=== PATIENT | male | born 1935 | race Caucasian/White ===

== ENCOUNTER 2018-12-20 16:55 | Inpatient (IN) ==
[2018-12-20 22:40] LABS: URINE SOURCE CATH
[2018-12-20 22:45] LABS: BILIRUBIN URINE NEGATIVE (NEGATIVE); BLOOD URINE MODERATE (NEGATIVE); COLOR ORANGE; GLUCOSE URINE NEGATIVE (NEGATIVE); KETONE URINE NEGATIVE (NEGATIVE); LEUKOCYTES URINE LARGE (NEGATIVE); NITRITE URINE NEGATIVE (NEGATIVE); PH URINE 5.5; PROTEIN URINE TRACE mg/dL (NEGATIVE); SP GRAVITY URINE 1.006; TURBIDITY URINE HAZY (CLEAR); UR EPITHELIAL CELLS <10 /HPF (<10); URINE BACTERIA 1+ /HPF; URINE RBC TNTC /HPF (<10); URINE WBC TNTC /HPF (<10); UROBILINOGEN URINE NORMAL (NORMAL)
[2018-12-20] MEDS ORDERED: ZOFRAN IV PRN (22:56)
[2018-12-20] MEDS ORDERED: TYLENOL PO PRN (22:56)
--- NOTE | 2018-12-20 23:11 | PROVIDER DOCUMENTATION ---
This chart was entered by Alicia Ley Scribe, acting as scribe for Chicho Almeida MD. HPI-Male Problem - General Chief Complaint: Urinary Retention Stated Complaint: FLUID BUILDED UP Time Seen by Provider: 12/20/18 19:02 Source: patient, old records Allergies/Adverse Reactions: Patient Allergies Allergy/AdvReac Type Severity Reaction Status Date / Time cetuximab [From Erbitux] Allergy NAUSEA/VOMI Verified 12/20/18 19:33 TING codeine Allergy RASH Verified 12/20/18 19:33 poison oak extract Allergy RASH Verified 12/20/18 19:33 Home Medications: Home Medication List Medication Instructions Recorded Confirmed Last Taken Type Atenolol 25 mg PO HS 04/14/18 12/20/18 12/19/18 History 25 MG PRAVAstatin [Pravachol] 40 mg PO QHS 04/16/18 12/20/18 12/19/18 History 40 MG Fenofibrate 160 mg PO DAILY 11/21/18 12/20/18 12/19/18 History 160 MG Hydrochlorothiazide 25 mg PO DAILY 11/21/18 12/20/18 12/19/18 History 25 MG Sulfamethoxazole/Trimethoprim 1 ea PO BID #10 tab 12/20/18 Unknown Rx [Bactrim Ds Tablet] - History of Present Illness-Male Nature of Presenting Problem: 83 y/o male presents to ED with urinary retention onset yesterday. Pt has petit catheter and suprapubic catheter in place at this time. Pt has been seen two other times in the past 24 hours for same. Had a petit catheter placed last night, whic was clogged in the morning, came to ED and it was changed in morning and again it is blocked since 4-5 hours. Pt is alert and oriented. Location of Complaint: reports: suprapubic Radiation: reports: none Quality of Pain: reports: fullness, pressure Severity in ED: reports: moderate Onset/Duration: reports: last night Timing: reports: still present Context/Activities at Onset: reports: none Urinary Symptoms: reports: retention Associated Symptoms: reports: other (urinary retention) Similar Symptoms Previously?: Yes Recently seen or treated by another doctor?: Yes Review of Systems - Adult - REVIEW OF SYSTEMS - ADULT Constitutional: denies: chills, fever Eyes: reports: no symptoms reported Ears, Nose, Mouth & Throat: reports: no symptoms reported Cardiovascular: denies: chest pain, palpitations Respiratory: denies: cough, shortness of breath Gastrointestinal: denies: abdominal pain, diarrhea, nausea, vomiting Genitourinary: reports: urinary retention. denies: incontinence Musculoskeletal: denies: back pain, joint pain Integumentary: reports: no symptoms reported Neurological: denies: dizziness/vertigo, seizure Psychiatric: reports: no symptoms reported Endocrine: reports: no symptoms reported Hematologic/Lymphatic: reports: no symptoms reported Allergic/Immunologic: reports: no symptoms reported All Other Systems: Reviewed and Negative Past History - Adult - PAST MEDICAL HISTORY-ADULT Review of Records: reports: Old Records Reviewed, Nursing Assessment Review, Medications Reviewed Major Childhood Illnesses: reports: denies history Cardiovascular: reports: HTN Respiratory: reports: denies history Gastrointestinal: reports: denies history Genitourinary: reports: kidney disease, prostatitis Musculoskeletal: reports: denies history Neurological: reports: denies history Psychiatric: reports: denies history Endocrine/Immune: reports: Lymphoma Other Conditions: reports: denies history, other cancer (skin, nose, tongue) - PRIOR SURGERIES/PROCEDURES Surgical/Procedure History: reports: cholecystectomy, tonsillectomy, gastric bypass, other (skin cancer removal) - IMMUNIZATION STATUS Childhood Immunizations: See Nurse Assessment Flu Vaccine: See Nurse Assessment - FAMILY HISTORY Family History: reviewed, not pertinent - SOCIAL HISTORY Smoking: quit greater than 1 year Substance Use: none/never Alcohol Use Frequency: never Living Situation: family Physical Exam-General - PHYSICAL EXAM-ADULT Initial Vital Signs Reviewed: Yes - CONSTITUTIONAL General Appearance: appears well, alert, no apparent distress - EYES Eyes: PERRL/EOMI, pink conjunctivae - HEAD, EARS, NOSE, MOUTH & THROAT HENMT: normocephalic/atraumatic, moist mucous membranes, normal ENT inspection - NECK Neck: non-tender, full range of motion - RESPIRATORY Respiratory: chest non-tender, lungs clear, normal breath sounds - CARDIOVASCULAR Cardiovascular: normal peripheral pulses, regular rate, rhythm - GASTROINTESTINAL (ABDOMEN) Abdominal Exam: normal bowel sounds, soft, tenderness (suprapubic) - GENITOURINARY Male Genitalia: normal genitalia, other (suprapubic and petit catheter in place) - MUSCULOSKELETAL Back Exam: normal inspection, no CVA tenderness Extremity: normal range of motion, non-tender, normal gait - SKIN Integumentary: normal color, warm/dry - NEUROLOGIC Neurologic: grossly normal - PSYCHIATRIC Psych/Mental Status: normal mood/affect, normal thought content, normal thought process Progress - PLAN OF CARE/RESULTS Progress/Plan/Lab Results: Vital Signs - 8 hr 12/20/18 17:06 12/20/18 19:21 12/20/18 19:22 Temperature 98.3 F Pulse Rate 84 Respiratory Rate 20 Blood Pressure 111/76 144/79 O2 Sat by Pulse Oximetry 98 98 98 Laboratory Results - last 24 hr 12/20/18 22:24 Urine Source CATH Urine Color ORANGE Urine Turbidity HAZY Urine pH 5.5 Ur Specific [place] 1.006 Urine Protein TRACE A Ur Glucose (Stick) NEGATIVE Ur Ketones (Stick) NEGATIVE Urine Blood MODERATE A Urine Nitrite NEGATIVE Urine Bilirubin NEGATIVE Urobilinogen Dipstick NORMAL Urine Leukocytes LARGE A Urine WBC (Auto) TNTC A Urine RBC (Auto) TNTC A U Epithel Cells (Auto) <10 Urine Bacteria (Auto) 1+ Orders Category Date Time Status Admit - [facility] Routine AdmDCTranf 12/20/18 22:56 Active Activity - Bedrest with BSC ORDERED Care 12/20/18 22:56 Active Apply Mechanical Device [QM] ORDERED Care 12/20/18 22:56 Active Petit Cath Insertion ORDERED Care 12/20/18 22:26 Active Intake and Output-Strict ORDERED Care 12/20/18 22:56 Active Nursing- MD Consult Request ROUTINE Care 12/20/18 22:57 Active Update & Confirm Home Medicati ROUTINE Care 12/20/18 22:58 Active Vital Signs Order Q 8-HR ASSESS Care 12/20/18 22:56 Active Z-Document. for Tele Applied ORDERED Care 12/20/18 22:56 Active Physician/Provider Consults Routine Cons 12/20/18 08:00 Ordered CBC WITH DIFF [HEME] Stat Lab 12/20/18 22:57 Uncollected COMPREHENSIVE METABOLIC PANEL [CHEM] Stat Lab 12/20/18 22:57 Uncollected TSH Routine Lab 12/21/18 06:00 Uncollected UA NIMS W/REFLEX CULT [URINALYSIS] Stat Lab 12/20/18 22:24 Completed Acetaminophen [Tylenol] Med 05/25/19 22:56 Ordered 650 mg PO Q6H PRN PRN Ondansetron [Zofran] Med 12/20/18 22:56 Ordered 4 mg IV Q4H PRN PRN Telemetry [OM.EQ] Routine Oth 12/20/18 22:56 Active Transfer/Admit Order [TRANSFER] Routine Transfer 12/20/18 22:59 Ordered - REASSESSMENT Reassessment #1 Time Reassessed: 22:32 Status: unchanged (Pt states he does not have any help at home and cannot self cath.) - CONSULTS/PCP/HOSPITALIST Notification #1 *Consult/PCP/Hospitalist*: Dr. Medina Time Discussed: 22:01 Reason/Comments: Urinary retention Consult Disposition: other (Dr. Medina requests the pt straight cath at home, but will admit if he cannot.) Departure - Departure Date of Disposition Decision: 12/20/18 Time of Disposition Decision: 22:01 DIAGNOSIS: Suprapubic catheter dysfunction, Acute urinary retention, Urinary catheter dysfunction Disposition: ADMITTED INPATIENT 09 Certified Medical Emergency: Emergent Condition: Stable Referrals and Follow-Ups: Jeovany Lester MD [Primary Care Provider] - - Critical Care Note This patient required my direct & personal management of CC.: No Attestation - Physician/ AGUSTINA Attestation Patient care was provided by Advanced Practice Provider:: No The physician spent face to face time with patient:: Yes Advanced Practice Provider documentation review:: Supervising physician onsite and consulted in the evaluation and care of this patient. The physician did have a face to face encounter with the patient. This chart was documented by the indicated scribe, (Alicia Ley Scribe) and accurately reflects the services I performed and decisions made by me, Chicho Almeida MD, as attested by the provider's signature.
[2018-12-20] MEDS ORDERED: NORCO-5 PO PRN (23:51)
[2018-12-21] MEDS: ROCEPHIN 1 GM in NS 50 ML IV SCH (00:51)
[2018-12-21 01:08] LABS: BASO# 0.02 X1000 (0.0-0.2); BASO% 0.3 % (0.0-0.8); EOS# 0.16 X1000 (0.0-0.7); EOS% 2.2 % (0.0-10.0); HEMATOCRIT 38.2 % (42.0-52.0); IMM GRAN# 0.02 X1000 (0.0-0.04); IMM GRAN% 0.3 % (0.0-0.5); LYMPH# 0.79 X1000 (1.2-3.4); LYMPH% 10.8 % (20.5-51.1); MCH 29.4 PG (27-31); MCV 86.4 FL (81-99); MONO% 10.9 % (1.7-9.3); MPV 10.4 FL (7.4-10.4); NEUT# 5.53 X1000 (1.4-6.5); NEUT% 75.5 % (42.2-75.2); PLT 206 X1000 (130-400); RBC 4.42 XMIL (4.7-6.1); RDW 13.8 % (11.5-14.5); WBC 7.32 X1000 (4.8-10.8)
[2018-12-21 01:38] LABS: AGAP 13; ALB/GLOB RATIO 1.2; ALBUMIN 3.6 g/dL (3.5-5.0); ALKALINE PHOSPHATASE 26 U/L (32-122); BUN 16 mg/dL (8-22); CALCIUM 9.1 mg/dL (8.8-10.2); CHLORIDE 103 mmol/L (98-107); COSMO 283; ESTIMATED GFR > 60; GLUCOSE 109 mg/dL (70-104); GOT 14 U/L (10-34); GPT 11 U/L (10-44); POTASSIUM 3.3 mmol/L (3.5-5.1); SODIUM 141 mmol/L (136-145); TCO2 25 mmol/L (25-35); TOTAL BILIRUBIN 0.72 mg/dL (0.20-1.00); TOTAL PROTEIN 6.6 g/dL (6.3-8.3)
--- NOTE | 2018-12-21 02:06 | HISTORY AND PHYSICAL ---
CHIEF COMPLAINT: Urinary retention. HISTORY OF PRESENT ILLNESS: This is an 83-year-old male who has a history of severe BPH, who is followed outpatient by Dr. Salter. He has been into the emergency room the last couple of days related to urinary retention. He has had suprapubic catheters placed in the past which always end up occluding. Dr. Salter had recommended to place an indwelling catheter both times when he presented to the emergency room. These occluded shortly after the patient would get home. He was having severe pain with the urinary retention so he came back to the emergency room tonight. Petit catheter was placed. It is draining with being irrigated. A urine was collected which does appear that he has a urinary tract infection. He has had several in the past which were all sensitive to Rocephin. We will treat accordingly. Patient will be admitted for urology consultation tomorrow morning. PAST MEDICAL HISTORY: 1. Head and neck cancer followed by Dr. Reese. He has finished his radiation and chemotherapy. 2. Severe BPH. 3. Paroxysmal atrial fibrillation. 4. Obesity. 5. Apparent poor living conditions. 6. Hyperlipidemia. 7. Hypertension. PREVIOUS SURGICAL HISTORY: 1. Suprapubic catheter placement. 2. Tonsillectomy. 3. Neck biopsy. SOCIAL HISTORY: Stopped smoking around 45 years ago. . Has 2 children. It has previously been noted that he lives in apparently very poor conditions, per his children. FAMILY HISTORY: Positive for hypertension. Denied any coronary artery disease or diabetes mellitus. ALLERGIES: Codeine, poison oak extract and Erbitux. The first 2 causing rash, the last causing nausea and vomiting. HOME MEDICATIONS: A list of home medications has not been reconciled. I believe the patient does take Flomax, atenolol and pravastatin. I am unsure of the dose. These will be restarted when appropriate. REVIEW OF SYSTEMS: Fourteen-point review of systems conducted with the patient. Pertinent positives listed above in the HPI. All other systems reviewed and found to be negative. PHYSICAL EXAMINATION: VITAL SIGNS: Temperature 98.3, pulse 84, respirations 20, blood pressure 144/79, oxygenation saturation 98% on room air. GENERAL: Pleasant 83-year-old male lying in the ER stretcher, answers all questions appropriately. He is alert and oriented times 3, is in no acute distress. HEENT: Head is atraumatic, normocephalic. Pupils equal, round, react to light. Extraocular eye movement is intact. Sclera is anicteric. Oral mucosa is moist. NECK: Supple. No JVD. No thyromegaly. Trachea is midline. No cervical lymphadenopathy. CARDIAC: S1, S2 appreciated. Irregularly irregular. No murmurs, gallops, rubs. LUNGS: Clear to auscultation bilaterally. No rhonchi, wheezes, rales. Symmetric rise and fall with respirations. ABDOMEN: Soft, nondistended, nontender. Suprapubic catheter noted. No tenderness at site of insertion. GENITOURINARY: No bladder distention after Petit catheter placed, draining slightly concentrated- looking urine. EXTREMITIES: Trace bilateral lower extremity edema. One-plus pedal pulses bilaterally. NEUROLOGICAL: Alert and oriented times 3. No focal or motor deficits noted. Otherwise nonfocal examination. DIAGNOSTIC DATA: Pending. We will review laboratory data when available. ASSESSMENT AND PLAN: 1. Urinary retention. This is likely related to the patient's severe BPH. Petit catheter has been placed. We will have Nursing irrigate hourly. It is possible that the patient may need cystoscopy or a continuous irrigation catheter. If it continues to clot, we will consult Dr. Salter, who follows him outpatient. 2. Urinary tract infection. Cultures are pending. We will treat with Rocephin 1 g daily. 3. Head and neck cancer. Aware. 4. Paroxysmal atrial fibrillation. Aware. We will restart rate control medication when available. 5. Hyperlipidemia. We will continue statin when medication has been reconciled. Further recommendation per patient clinical course. Dictated by JANELLE Solis for Thiago Medina MD cc: JANELLE Solis Agree with the above. the following is my on face to face evaluation. Patient with severe BPH, chronic urinary retention. has a suprapubic cath but has had issues with both suprapubic and petit catheters ceasing to drain. appears to be passing a fair amount of blood from around his petit. uncertain if this is due to traumatic petit placement or if he is having hematuria that is clogging his catheters. replaced petit appears to be draining currently, urine doesn't appear grossly bloody so favor traumatic petit placement but will see what urology says. [facility]
[2018-12-21] MEDS ORDERED: KLOR-CON PO ONE (03:21)
--- NOTE | 2018-12-21 12:00 | PROGRESS NOTE ---
DATE: 12/21/2018 SUBJECTIVE: This morning, Mr. Jnoes referred to be doing a lot better. Mr. Jones has a history of BPH with a suprapubic catheter for a very long time. Follows up with Dr. Salter on monthly basis for a catheter change. He said on November 27, when he went for catheter change, it was difficult. They could not get it in, so eventually a Madison catheter was placed in. Then, after the suprapubic was placed in, it was clamped. He has been using the Madison catheter for now but he has been in the ER at least 2 times because of blockages through the Madison catheter so he was admitted yesterday because of Madison catheter malfunction. OBJECTIVE: This morning, he seems to be doing a lot better. He said the catheter was flushed about 4 times last night and he is feeling a lot better. His current vitals have been reviewed. Blood pressure is 120/46, pulse is 64, respirations are 15, temperature is 98.4 degrees, patient is saturating 98% on room air. General Examination: Mr. Jones is an 83-year-old, male. He is in bed. He is not in any distress. HEENT: Mucosa is pink and moist. Anicteric. Acyanotic. Neck is supple. Chest: Clear to auscultation. Cardiovascular: Regular rate and rhythm. Abdomen: Soft. Distended but nontender. There is a suprapubic catheter in place. There is also a Madison catheter which is draining well. Extremities: No pedal edema. SENIOR INTERACTIVE DEVELOPER: The patient is awake, alert, and oriented. Laboratory Data: Has been reviewed, unremarkable. Potassium was about 3.3. Urinalysis has also been reviewed. Current Medications: Have been reviewed. ASSESSMENT AND PLAN: 1. Urinary retention secondary to severe benign prostatic hypertrophy with malfunctioning Madison catheter. This has been flushed. It seems to be working well. Urology has been consulted. The patient still also has the suprapubic catheter in place. 2. Suspected urinary tract infection. The patient is on Rocephin. Urine cultures have been done. 3. History of head and neck cancer. 4. Paroxysmal atrial fibrillation. The patient is on atenolol. 5. Hypertension, controlled. cc: Asad Baker MD
[2018-12-21] MEDS ORDERED: STERILE WATER INJ. ONE (12:29)
--- NOTE | 2018-12-21 16:04 | CONSULTATION ---
DATE OF CONSULTATION: 12/21/2018 ATTENDING AND REFERRING PHYSICIAN: Hospitalist. HISTORY OF PRESENT ILLNESS: This 83-year-old male has a history of a neurogenic bladder secondary to a markedly enlarged prostate. This has resulted in urinary retention. He had a suprapubic tube placed in April 2018 and was doing well until last month when it became dislodged. He underwent replacement of the suprapubic tube without difficulty. He states he was doing well but then developed urinary retention. He states his tube stopped draining. He was seen in the emergency room, where he had a Madison catheter placed but nothing was done with the suprapubic tube. He states he went home with his Madison catheter draining but then that became plugged. He returned to the emergency room and was admitted. His urethral Madison catheter has been irrigated and the efflux is clear. The patient states as long as his bladder is draining he does well. 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 CURRENT MEDICATIONS: Documented on the chart. PAST SURGICAL HISTORY: Neck biopsy, tonsillectomy, teeth extraction, cystoscopic exam with placement of a suprapubic tube and multiple changes since then. SOCIAL HISTORY: No recent tobacco or alcohol use. He lives by himself. ALLERGIES: He is allergic to codeine and Erbitux, poison oak. PAST MEDICAL HISTORY: He denies any recent chest pains, breathing problems, bowel problems. PHYSICAL EXAMINATION: General: An obese, age apparent, normally developed, white male, oriented in all ways and cooperative. HEENT: Normal for age. Lungs: Clear. Cardiovascular: Irregular rate and rhythm. Abdomen: Obese, soft, nontender. No hepatosplenomegaly or masses. Normal bowel sounds. SP tube is in place but not draining. It is plugged. : Uncircumcised male with Madison catheter in place. The urethral Madison catheter irrigates without difficulty. There does not seem to be any blood in the urine. Both testes are down and palpably normal. No inguinal hernias. Rectal: Exam that was done on 11/27/2018 revealed a prostate greater than 100 g with a nodule at the base that has not changed in many years. Neurologic: No focal deficits. Extremities: No C, C or E. LABORATORY EVALUATION: Has a white count of 7.32, hemoglobin 13.0, hematocrit 38.2 and platelets are 206,000. Serum electrolytes are centrally normal, potassium is 3.3, BUN 16, creatinine 1.0. A urinalysis is consistent with an indwelling catheter having white cells and red cells present. The dipstick for bacteria is negative. A urine has been sent for culture and is pending. IMPRESSION: 1. Neurogenic bladder secondary to an enlarged prostate. 2. Urinary retention. 3. An indwelling urethral Madison catheter that is draining clear urine and an indwelling suprapubic tube that appears to be obstructed. PLAN: The bladder was distended by putting in 120 mL of sterile saline through his urethral Madison and this was plugged. The suprapubic tube was removed and there did appear to be stone encrustation and a block at the end of the catheter after it was removed and a new 16-S[place] Madison catheter was easily placed in his bladder. 10 mL of sterile water were placed in the Madison balloon. The Madison was placed to gravity drain that drained clear urine. The suprapubic tube was placed to gravity drain. The urethral Madison catheter was removed. He tolerated the procedure well. Thank you for this consultation. cc: Levy Salter MD
[2018-12-22] MEDS: ROCEPHIN 1 GM in NS 50 ML IV SCH ×2 (00:16→23:30)
[2018-12-22 06:48] LABS: BASO# 0.04 X1000 (0.0-0.2); BASO% 0.8 % (0.0-0.8); EOS% 6.2 % (0.0-10.0); HEMATOCRIT 35.9 % (42.0-52.0); IMM GRAN# 0.02 X1000 (0.0-0.04); IMM GRAN% 0.4 % (0.0-0.5); LYMPH# 0.78 X1000 (1.2-3.4); MCH 29.3 PG (27-31); MCHC 33.4 g/dL (33-37); MCV 87.6 FL (81-99); MONO# 0.53 X1000 (0.11-0.59); MONO% 10.9 % (1.7-9.3); MPV 10.1 FL (7.4-10.4); NEUT# 3.19 X1000 (1.4-6.5); NEUT% 65.7 % (42.2-75.2); PLT 192 X1000 (130-400); RDW 13.7 % (11.5-14.5); WBC 4.86 X1000 (4.8-10.8)
[2018-12-22 07:12] LABS: AGAP 9; BUN 13 mg/dL (8-22); CALCIUM 8.5 mg/dL (8.8-10.2); CHLORIDE 103 mmol/L (98-107); COSMO 278; CREATININE 0.9 mg/dL (0.7-1.2); ESTIMATED GFR > 60; GLUCOSE 96 mg/dL (70-104); POTASSIUM 3.5 mmol/L (3.5-5.1); SODIUM 139 mmol/L (136-145); TCO2 27 mmol/L (25-35)
[2018-12-22] MEDS ORDERED: VANCOMYCIN IV PER PHARMACY MISC SCH (13:15)
--- NOTE | 2018-12-22 13:37 | PROGRESS NOTE ---
DATE: 12/22/2018 SUBJECTIVE: Patient has no major issues. His catheter is draining well. Dr. Salter checked on it this morning, said it looked like it was working without any major issues. OBJECTIVE: Vital Signs: Blood pressure 132/64, heart rate 62, respiratory rate 20, temperature 98.1 degrees, 98% on room air. Cardiovascular: Regular rate and rhythm. Pulmonary: Bilateral breath sounds clear to auscultation. GI: Soft, nontender, nondistended. Bowel sounds are positive. LABORATORY DATA: White count 4, hemoglobin and hematocrit 12 and 35, platelets 192,000. PROBLEM LIST: 1. Suprapubic catheter misplacement or dysfunctional. That seems to be resolved with intervention of urology. Appreciate their input. 2. Gram-positive cocci urinary tract infection which is most likely Enterococcus. He is currently on Rocephin which probably is not going to be effective. Enterococcus tends to be resistant. I am going to put him on vancomycin. He may end up needing ideally ampicillin but we will see how things look, but I think once we get that data back, he should be able to go home. 3. Hypertension appears to be controlled. DISPOSITION: Just pending his urine culture. If that is stable then I think he could go home. cc: Kody Bryan MD
[2018-12-22] MEDS ORDERED: VANCOMYCIN 2 GM in NS 500 ML IV SCH (15:00)
[2018-12-22] MEDS ORDERED: HYDROCHLOROTHIAZIDE PO SCH (21:00)
[2018-12-22] MEDS ORDERED: TENORMIN PO SCH (21:00)
[2018-12-22] MEDS ORDERED: PRAVACHOL PO SCH (21:00)
[2018-12-22] MEDS ORDERED: LOFIBRA PO SCH (21:00)
[2018-12-22] MEDS ORDERED: ASPIRIN EC PO SCH (21:00)
[2018-12-23 04:01] VITALS: BP 119/54
[2018-12-23 08:12] LABS: BASO# 0.04 X1000 (0.0-0.2); BASO% 0.8 % (0.0-0.8); EOS# 0.37 X1000 (0.0-0.7); EOS% 7.4 % (0.0-10.0); HEMATOCRIT 37.7 % (42.0-52.0); HEMOGLOBIN 12.5 g/dL (14.0-18.0); IMM GRAN# 0.03 X1000 (0.0-0.04); IMM GRAN% 0.6 % (0.0-0.5); LYMPH# 0.69 X1000 (1.2-3.4); LYMPH% 13.7 % (20.5-51.1); MCH 29.1 PG (27-31); MCHC 33.2 g/dL (33-37); MCV 87.9 FL (81-99); MONO# 0.49 X1000 (0.11-0.59); MONO% 9.7 % (1.7-9.3); MPV 10.4 FL (7.4-10.4); NEUT# 3.41 X1000 (1.4-6.5); NEUT% 67.8 % (42.2-75.2); PLT 216 X1000 (130-400); RBC 4.29 XMIL (4.7-6.1); RDW 13.7 % (11.5-14.5); WBC 5.03 X1000 (4.8-10.8)
[2018-12-23 08:34] LABS: AGAP 10; BUN 13 mg/dL (8-22); CALCIUM 8.1 mg/dL (8.8-10.2); CHLORIDE 103 mmol/L (98-107); COSMO 278; CREATININE 0.8 mg/dL (0.7-1.2); ESTIMATED GFR > 60; GLUCOSE 102 mg/dL (70-104); POTASSIUM 3.7 mmol/L (3.5-5.1); SODIUM 139 mmol/L (136-145); TCO2 26 mmol/L (25-35)
--- NOTE | 2018-12-23 13:55 | DISCHARGE SUMMARY ---
ADMISSION DATE: 12/20/2018 DISCHARGE DATE: 12/23/2018 ADMITTING DIAGNOSES: 1. Urinary retention. 2. Urinary tract infection. 3. History of head and neck cancer. 4. Paroxysmal atrial fibrillation. 5. Hyperlipidemia. DISCHARGE DIAGNOSES: 1. Urinary retention. 2. E. Faecalis urinary tract infection. 3. History of head and neck cancer. 4. Paroxysmal atrial fibrillation. 5. Hyperlipidemia. CONSULTATIONS: Dr. Salter with Urology. DIAGNOSTIC PROCEDURES AND FINDINGS: None. HOSPITAL COURSE: Mr. Jones is an 83-year-old male with a history of head and neck cancer as well as neurogenic bladder secondary to BPH, who underwent suprapubic tube placement in 04/2018. He was doing well until about a month ago. His Petti stopped functioning. He came to the ER and had a Petit catheter placed. The Petit catheter then became plugged, and he returned to the ER this time and was admitted. He had a UTI on laboratory evaluation which did end up growing group D E. faecalis. We consulted Dr. Salter for the urinary retention, who did a bedside Petit catheter flush. He also removed the suprapubic tube which did appear to have a stone encrustation and block at the end. A new suprapubic catheter was placed into his bladder, and the petit cath was taken out. He tolerated the procedure well. Overall, he is doing much better. His laboratory data does not show anything acute. He is now stable for discharge. DISCHARGE MEDICATIONS: Atenolol 25 mg at bedtime, Pravachol 40 mg p.o. at bedtime, [id number] mg p.o. at bedtime, hydrochlorothiazide 25 mg at bedtime, aspirin 81 mg p.o. at bedtime Amoxil 500mg bid for 5 days DISCHARGE DIET: Heart healthy. DISPOSITION AND OTHER DISCHARGE INSTRUCTIONS: The patient is discharged home to self care. He is to follow up with Dr. Jeovany Lester, his PCP, within the next 2 to 3 weeks, and Dr. Salter, his urologist, as directed. He is to return to the ER or call 911 for worsening complaints or concerns. All questions answered. Discharge time greater than 35 minutes. Dictated by JANELLE Etienne for Asad Baker MD cc: Gavin J. MikolaschekJANELLE MD William E. Hughes, MD Edwin K. Matthews, MD I have seen and examined Mr Jones today. He feels better. Currently asymptomatic and clinically stable for discharge. I have reviewed his medication and reconciled them. Mr Jones is discharge today to go home All discharge instructions discussed with him and he voices understanding. I agree with the above discharge summary. BOB
== END 2018-12-23 14:39 | disposition home health service (06) | DRG 699 ==
LOC: ED 16:55 → INTOOBSV 23:56 → SUATTDRO 23:56 → 3N 23:56 → OBSVTOIN 23:56
PROVIDERS: ATTEND Internal Medicine
CPT/HCPCS: 51700; 51702; 51703; 80048; 80053; 81001; 84443; 85025; 87070; 87077; 87088; 87186; 96365; 99283; 99285; A9270; J0696; J3370; J7040